=== PATIENT | male | born 1940 | race Caucasian/White ===

== ENCOUNTER 2017-08-26 09:52 | Outpatient (CLI) | payer MEDICARE ==
--- NOTE | 2017-08-26 13:59 | CT ---
CT ANGIOGRAM ABDOMEN AND PELVIS WITH IV CONTRAST AND 3D RECONSTRUCTIONS CT ANGIOGRAM BILATERAL LOWER EXTREMITIES WITH RUNOFF TO THE FEET WITH IV COTNRAST AND 3D RECONSTRUCTI ONS: CT ANGIOGRAM ABDOMEN AND PELVIS: There is a small hiatal hernia. The lung bases are clear. The liver, spleen, pancreas, bilateral adrenal glands, kidneys, and urinary bladder demonstrate a nor mal CT appearance. Dense vascular calcifications are seen in the visualized coronary arteries. There are also dense vas cular calcifications involving the abdominal aorta and iliac arteries. The celiac artery is patent. There is a moderate to severe narrowing involving the origin and proximal superior mesenteric artery with degree of narrowing measuring at least 50% or slightly greater. Origin of the HAYDEN is obscured by dense vascular calcifications. A single patent left renal artery is present. There is mild narro wing involving the proximal single right renal artery due to vascular calcifications. There are prominent vascular calcifications in the iliac arteries bilaterally with only mild degrees of narrowing present. There is a dense calcification involving the proximal left internal iliac loraine ry which obscures the lumen in this region. The proximal left external iliac artery demonstrates mil d narrowing due to vascular calcifications, but the external iliac arteries are otherwise patent bila terally. A fat-containing left inguinal hernia is present with postsurgical changes in each inguinal region. S mall left hydrocele is present. CTA BILATERAL LOWER EXTREMITIES WITH RUNOFF TO THE FEET: Right Lower Extremity: Vascular calcifications are seen in the right common femoral artery, but the right common femoral art luli is patent. There are surgical clips seen in the right inguinal region and adjacent to the proxim al right superficial femoral artery. There is mild narrowing involving the origin of the right super ficial femoral artery. Right profunda femoral artery is patent. There is a dense vascular calcifica tion seen present in the mid right SFA as well as an additional dense vascular calcification seen in the distal right SFA near the adductor canal. There is moderate narrowing involving the mid right SF A, but the lumen of the distal right SFA is not well seen and significant stenosis in this region cou ld not be entirely excluded. There is suboptimal opacification of the popliteal and tibioperoneal ve ssels probably related to timing of the contrast bolus, and the distal lower extremity arterial vesse ls cannot be adequately evaluated on this exam but do demonstrate significant atherosclerotic vascula r calcifications. Left Lower Extremity: There is dense calcification present in the distal left common femoral artery which obscures the lume n in this region. Significant stenosis could not be excluded. The profunda femoral artery is patent . Scattered vascular calcifications are seen in the left superficial femoral artery which otherwise appear patent. There is a vascular stent present in the mid right SFA extending to near the level of the adductor canal. The stent overall appears patent, although there is suboptimal contrast present . As noted on the contralateral right side, there is again suboptimal opacification of the popliteal artery and tibioperoneal vessels limiting adequate evaluation of these arterial vessels. IMPRESSION: 1. Moderate to severe narrowing involving the origin and proximal superior mesenteric artery. 2. Focal dense calcification is seen involving the most proximal internal iliac artery as well as th e distal left common femoral artery which obscures the lumen in these regions, and a significant sten osis could not be entirely excluded. 3. Focally dense calcification is seen in the mid right superficial femoral artery as well as in the distal right superficial femoral artery again obscuring the lumen in these regions. However, a sign ificant stenosis, especially in the distal right superficial femoral artery is suggested. 4. Stent in the mid and distal left superficial femoral artery which appears grossly patent. 5. Suboptimal opacification of the bilateral popliteal arteries and tibioperoneal vessels likely rel ated to suboptimal timing of the contrast bolus. 6. Small hiatal hernia. POS: TOYA
== END 2017-08-26 09:53 | disposition home or self-care (01) ==
LOC: SCSCT 09:52
PROVIDERS: ATTEND Thoracic Surgery (Cardiothoracic Vascular Surgery)
DX: I70.203 Unspecified atherosclerosis of native arteries of extremities, bilateral legs (principal); K44.9 Diaphragmatic hernia without obstruction or gangrene
CPT/HCPCS: 75635

== ENCOUNTER 2017-09-02 08:30 | Inpatient (IN) | payer MEDICARE, BC ==
[2017-09-03] MEDS ORDERED: Heparin 5,000 UNITS/ML VIAL ONE (10:17)
[2017-09-03] MEDS ORDERED: Protamine Sulfate 50 MG/5 ML VIAL ONE ×2 (10:17→15:39)
[2017-09-03] MEDS ORDERED: CEFAZOLIN/Water 2 GM/20 ML SYRINGE ONE (10:42)
[2017-09-03] MEDS ORDERED: Fentanyl 100 MCG/2 ML VIAL ONE ×2 (11:34→16:32)
[2017-09-03] MEDS ORDERED: Phenylephrine HCL 10 MG/ML VIAL ONE (11:35)
[2017-09-03] MEDS ORDERED: Heparin 10,000 UNITS/ 10 ML VIAL ONE (14:32)
[2017-09-03] MEDS ORDERED: Lidocaine 1% PF 5 ML VIAL ONE (14:32)
[2017-09-03] MEDS ORDERED: Dexamethasone 20 MG/5 ML VIAL ONE (14:32)
[2017-09-03] MEDS ORDERED: ePHEDrine/0.9% NaCl/PF SYRINGE 50 mg/10 ml ONE (14:32)
[2017-09-03] MEDS ORDERED: Glycopyrrolate 0.2 MG/ML 5 ML SYRINGE ONE (14:32)
[2017-09-03] MEDS ORDERED: Propofol 200 MG/20 ML VIAL ONE (14:32)
[2017-09-03] MEDS ORDERED: PHENYLEPHRINE-NS 100 MCG/ML 10 ML SYRINGE ONE (14:32)
[2017-09-03] MEDS ORDERED: Ondansetron HCl/PF 4 MG/2 ML Vial ONE (14:32)
[2017-09-03] MEDS ORDERED: Heparin 10,000 UNITS/1 ML VIAL ONE (15:06)
[2017-09-03] MEDS ORDERED: Meperidine HCl/PF 25 MG/ML VIAL SLOW IVP PRN (16:23)
[2017-09-03] MEDS ORDERED: Promethazine HCl 25 MG/ML VIAL SLOW IVP PRN (16:23)
[2017-09-03] MEDS ORDERED: Morphine Sulfate 2 MG/ML SYRINGE SLOW IVP PRN (16:23)
[2017-09-03] MEDS ORDERED: HYDROmorphone 2 MG/ML VIAL SLOW IVP PRN (16:23)
[2017-09-03] MEDS ORDERED: hydrALAZINE 20 MG/ML VIAL SLOW IVP PRN (17:56)
[2017-09-03] MEDS ORDERED: Promethazine HCl 25 MG SUPP PR PRN (17:56)
[2017-09-03] MEDS ORDERED: Promethazine HCl 25 MG/ML VIAL IM PRN (17:56)
[2017-09-03] MEDS ORDERED: Acetaminophen 325 MG TAB PO PRN (17:56)
[2017-09-03] MEDS ORDERED: HYDROcodone/Acetaminophen 5/325 mg Tablet PO PRN ×2 (17:56)
[2017-09-03] MEDS ORDERED: Ondansetron HCl/PF 4 MG/2 ML Vial IVP PRN (17:56)
--- NOTE | 2017-09-03 18:23 | OP ---
DATE OF PROCEDURE: 09/03/2017 PREOPERATIVE DIAGNOSES: Bilateral lower extremity lifestyle-limiting claudication with recurrent lef t external iliac/common femoral artery stenosis after endarterectomy and right superficial femoral ar tanisha severe stenosis. PREOPERATIVE DIAGNOSES: Bilateral lower extremity lifestyle-limiting claudication with recurrent lef t external iliac/common femoral artery stenosis after endarterectomy and right superficial femoral ar tanisha severe stenosis. PROCEDURES: 1. Redo left common femoral artery/external iliac/superficial femoral artery/profunda exposure. 2. Left external iliac artery angiogram. 3. Abdominal aortogram. 4. Right external iliac angiogram. 5. Right common femoral artery angiogram. 6. Right superficial femoral artery angiogram. 7. Right popliteal artery angiogram. 8. Right anterior tibial artery angiogram. 9. Right distal superficial femoral artery/popliteal artery primary stenting with post-DRAG CAR RACER -- 6 x 10 0 Innova nitinol stent posted with a 6 x 100 Letha balloon. 10. Right mid superficial femoral artery stent/DRAG CAR RACER with a 6 x 150 Innova stent posted with a 6 x 100 Letha balloon. 11. Left external iliac/common femoral artery/superficial femoral artery redo endarterectomy with mcarina vine pericardium patch angioplasty. TOTAL CONTRAST: 62.5. TOTAL FLUORO TIME: 19.24. ESTIMATED BLOOD LOSS: 500 mL. ANESTHESIA: General endotracheal. DESCRIPTION OF PROCEDURE: After consent was obtained, the patient was brought to the operating room and placed in the supine position on the operating room table. Appropriate anesthetic monitor was pl aced and general endotracheal anesthesia induced. Abdomen and groins were prepped and draped in usua l sterile fashion. Left groin was reopened through its previous incision. The common femoral, profu nda femoris, superficial femoral and external iliac arteries were carefully dissected free from surro unding tissues. An area above the area of calcification was selected and punctured with an angiograp hy needle. A Glidewire was then passed into the upper abdominal aorta. Contra catheter was passed t o the aorta and hand-injected aortogram performed. The aorta, common iliac and proximal external ralph ac arteries bilaterally were without significant stenosis. Hand-injected arteriogram was then perfor med through the sheath in the left groin, eliminating the left groin showing the area of severe steno sis that was recurrent in the endarterectomy site. The Contra catheter was then guided over the aort ic bifurcation and into the external iliac artery. Hand-injected arteriogram was performed eliminati ng the distal external iliac and common femoral arteries, which were free of any significant stenosis . The catheter was then placed in the common femoral artery and again hand-injected arteriogram was performed in serial fashion eliminating the SFA, profunda, popliteal and tibial vessels. There were 2 areas of severe stenosis in the mid SFA and an area of occlusion in the popliteal artery. The rohan ent was given 5000 units of heparin. The Magic Torque guidewire was then placed through the Contra c atheter and Contra catheter sheath removed. A destination sheath was then placed over the aortic bif urcation into the superficial femoral artery. An angled glide catheter and Glidewire were used to tr averse the first two areas of stenosis. The Glidewire and a [place] catheter were then used to trave rse the area of occlusion in the popliteal artery. Hand-injected arteriogram was performed with the catheter in the anterior tibial artery showing intraluminal location. The Magic Torque guidewire was again replaced. A 6 x 100 stent was selected for the distal area of occlusion and multiple areas of stenosis. This was deployed and posted with a 6 x 100 balloon. Hand-injected arteriogram with the tip of the sheath in the SFA showed an excellent result. The multiple areas of stenosis in the mid l eft SFA were treated with a 6 x 150 Innova stent, posted with a 6 x 100 Letha balloon. Hand-inject ed arteriogram again showed an excellent result. Sheath was withdrawn over the aortic bifurcation ba ck into the left external iliac artery. Guidewires were removed. Left groin was then addressed. Th e common femoral artery was clamped and the sheath removed. SFA and profunda branches were clamped. The previous endarterectomy patch was opened vertically. This was extended above the previous patch into the external iliac artery. This was where the external iliac became normal with excellent infl ow. ACT remained over 220 throughout the procedure. The incision was extended down onto the superfi cial femoral artery. A redo endarterectomy was performed with mosquito hemostats clearing all the ca lcium. Bovine pericardial patch was then sewn in place with running 5-0 Prolene suture. At the comp letion, the clamps were released and antegrade flow reestablished. There was an excellent Doppler si gnal distal to the patch. Protamine was administered. Hemostasis was ensured. Wounds were copiousl y irrigated, closed in multiple layers, and Dermabond applied to the skin. The patient tolerated the procedure well, was awakened, extubated, and transferred to the recovery room in stable condition.
[2017-09-03 18:26] VITALS: BMI 30.9
[2017-09-03] MEDS: CEFAZOLIN/Water 2 GM/20 ML SYRINGE SLOW IVP SCH (21:16)
[2017-09-03] MEDS: diphenhydrAMINE 50 MG CAP PO SCH (21:17)
[2017-09-03] MEDS ORDERED: FLU VACC TS2017-18 (>65YR) 0.5 ML SYRINGE IM ONE (22:00)
[2017-09-04] MEDS: HYDROcodone/Acetaminophen 5/325 mg Tablet PO PRN ×2 (05:08→11:59)
[2017-09-04] MEDS: CEFAZOLIN/Water 2 GM/20 ML SYRINGE SLOW IVP SCH ×2 (05:11→13:55)
[2017-09-04 05:15] LABS: #Lymphocytes 1.6 thou/uL (1.20-3.40); #Monocytes 0.5 thou/uL (0.11-0.59); #Neutrophils 8.1 thou/uL (1.40-6.50); %Basophils 0.1 % (0.0-1.0); %Eosinophils 0.1 % (0.0-10.0); %Lymphocytes 15.8 % (21.0-51.0); %Monocytes 4.6 % (0.0-10.0); %Neutrophils 79.5 % (42.0-75.0); Hemoglobin 11.8 g/dL (14.0-18.0); Mean Corpuscular HGB CONC 33.4 g/dL (32.0-36.0); Mean Corpuscular Hemoglobin 31.2 pg (27.0-31.0); Mean Corpuscular Volume 93.2 fl (80.0-94.0); Mean Platelet Volume 7.6 fL (7.4-10.4); Platelet Count 194 thou/uL (130-400); RBC Distribution Width 12.2 % (11.5-14.5); Red Blood Cell (RBC) Count 3.78 mill/uL (4.70-6.10); White Blood Cell (WBC) Count 10.2 thou/uL (4.8-10.8)
[2017-09-04 05:36] LABS: Anion Gap 9 mmol/L (10-20); BUN (Urea Nitrogen) 13 mg/dL (8.4-25.7); Calc. Creatinine Clearance 119 mL/min (70-130); Calcium 8.7 mg/dL (7.8-10.44); Carbon Dioxide 25 mmol/L (23-31); Chloride 107 mmol/L (98-107); Estimated GFR-MDRD Greater than 90; Glucose 117 mg/dL (83-110); Potassium 3.8 mmol/L (3.5-5.1); Sodium 137 mmol/L (136-145)
[2017-09-04] MEDS: Clopidogrel Bisulfate 75 MG TAB PO SCH (11:41)
[2017-09-04] MEDS: Multivit, Therapeutic 1 TAB PO SCH (11:41)
[2017-09-04] MEDS: Atorvastatin Calcium 20 MG TAB PO SCH (11:41)
[2017-09-04] MEDS: diphenhydrAMINE 50 MG CAP PO SCH (21:34)
[2017-09-05 05:19] LABS: #Eosinphils 0.4 thou/uL (0.0-0.7); #Lymphocytes 3.7 thou/uL (1.20-3.40); #Monocytes 0.9 thou/uL (0.11-0.59); #Neutrophils 9.1 thou/uL (1.40-6.50); %Basophils 0.3 % (0.0-1.0); %Lymphocytes 26.4 % (21.0-51.0); %Monocytes 6.1 % (0.0-10.0); %Neutrophils 64.2 % (42.0-75.0); Hemoglobin 12.2 g/dL (14.0-18.0); Mean Corpuscular HGB CONC 33.2 g/dL (32.0-36.0); Mean Corpuscular Volume 93.4 fl (80.0-94.0); Mean Platelet Volume 8.2 fL (7.4-10.4); Platelet Count 284 thou/uL (130-400); RBC Distribution Width 12.3 % (11.5-14.5); Red Blood Cell (RBC) Count 3.95 mill/uL (4.70-6.10); White Blood Cell (WBC) Count 14.1 thou/uL (4.8-10.8)
[2017-09-05 05:48] LABS: Anion Gap 13 mmol/L (10-20); BUN (Urea Nitrogen) 16 mg/dL (8.4-25.7); Calc. Creatinine Clearance 110 mL/min (70-130); Calcium 9.7 mg/dL (7.8-10.44); Carbon Dioxide 24 mmol/L (23-31); Chloride 105 mmol/L (98-107); Estimated GFR-MDRD Greater than 90; Glucose 121 mg/dL (83-110); Potassium 3.8 mmol/L (3.5-5.1); Sodium 138 mmol/L (136-145)
--- NOTE | 2017-09-05 07:17 | DIS ---
DISCHARGE DIAGNOSES: Peripheral vascular disease. PROCEDURES: 1. Redo left iliofemoral endarterectomy. 2. Angiograms and stenting of the right superficial femoral and popliteal arteries. DESCRIPTION OF HOSPITAL STAY: Mr. Castaneda was brought in with severe bilateral lifestyle limiting c laudication. He underwent the above procedure. He has done well postoperatively and being discharge d home today. Home medications are unchanged.
[2017-09-05] MEDS: Clopidogrel Bisulfate 75 MG TAB PO SCH (09:59)
[2017-09-05] MEDS: Multivit, Therapeutic 1 TAB PO SCH (09:59)
[2017-09-05] MEDS: Atorvastatin Calcium 20 MG TAB PO SCH (09:59)
[2017-09-05 12:46] VITALS: BP 116/70; TEMP 97.5
== END 2017-09-05 11:39 | disposition home or self-care (01) | DRG 272 ==
LOC: SURG A 09-03 09:32 → 2NO 09-03 17:03
PROVIDERS: ADMIT Thoracic Surgery (Cardiothoracic Vascular Surgery); ATTEND Thoracic Surgery (Cardiothoracic Vascular Surgery)
PROC: 04CJ3ZZ Extirpation of Matter from Left External Iliac Artery, Percutaneous Approach (ICD-10-PCS; principal; 2017-09-03)
PROC: 04CL3ZZ Extirpation of Matter from Left Femoral Artery, Percutaneous Approach (ICD-10-PCS; 2017-09-03)
PROC: 047K34Z Dilation of Right Femoral Artery with Drug-eluting Intraluminal Device, Percutaneous Approach (ICD-10-PCS; 2017-09-03)
PROC: 04U Lower Arteries, Supplement (ICD-10-PCS; 2017-09-03)
PROC: 04U Lower Arteries, Supplement (ICD-10-PCS; 2017-09-03)
PROC: 047M34Z Dilation of Right Popliteal Artery with Drug-eluting Intraluminal Device, Percutaneous Approach (ICD-10-PCS; 2017-09-03)
PROC: B41G1ZZ Fluoroscopy of Left Lower Extremity Arteries using Low Osmolar Contrast (ICD-10-PCS; 2017-09-03)
PROC: B41F1ZZ Fluoroscopy of Right Lower Extremity Arteries using Low Osmolar Contrast (ICD-10-PCS; 2017-09-03)
DX: I70.213 Atherosclerosis of native arteries of extremities with intermittent claudication, bilateral legs (principal); E78.5 Hyperlipidemia, unspecified
CPT/HCPCS: 36415; 36416; 76001; 80048; 85025; 85027; 85610; 85730; 86850; 86900; 86901; 93005; 93010; A4216; C1725; C1769; C1876; C1887; G8978-GP-CJ; G8979-GP-CJ; G8980-GP-CJ; J1100; J1644; J2001; J2370; J2405; J2704; J2720; J3010; J7620

== ENCOUNTER 2017-09-02 08:31 | Outpatient (CLI) | payer MEDICARE, BC ==
[2017-09-02 09:36] LABS: Hemoglobin 14.6 g/dL (14.0-18.0); Mean Corpuscular HGB CONC 33.2 g/dL (32.0-36.0); Mean Corpuscular Volume 93.2 fl (80.0-94.0); Mean Platelet Volume 7.7 fL (7.4-10.4); Platelet Count 212 thou/uL (130-400); RBC Distribution Width 12.1 % (11.5-14.5); White Blood Cell (WBC) Count 6.2 thou/uL (4.8-10.8)
[2017-09-02 09:48] LABS: Prothrombin Time 13.8 SEC (12.0-14.7)
[2017-09-02 09:49] LABS: PTT 31.3 SEC (22.9-36.1)
[2017-09-02 09:58] LABS: Anion Gap 10 mmol/L (10-20); BUN (Urea Nitrogen) 16 mg/dL (8.4-25.7); Calc. Creatinine Clearance 0 mL/min (70-130); Calcium 9.9 mg/dL (7.8-10.44); Carbon Dioxide 29 mmol/L (23-31); Chloride 105 mmol/L (98-107); Estimated GFR-MDRD 77; Glucose 97 mg/dL (83-110); Potassium 4.3 mmol/L (3.5-5.1); Sodium 140 mmol/L (136-145)
--- NOTE | 2017-11-09 13:35 | EKG ---
Test Reason : Blood Pressure : / mmHG Vent. Rate : 071 BPM Atrial Rate : 071 BPM P-R Int : 166 ms QRS Dur : 096 ms QT Int : 392 ms P-R-T Axes : 045 -27 044 degrees QTc Int : 425 ms Normal sinus rhythm Low voltage QRS Borderline ECG Confirmed by CUONG MCKNIGHT MD ([id number]) on 11/09/2017 1:35:05 PM Referred By: MONICA Confirmed By:CUONG MCKNIGHT MD
== END 2017-09-02 08:32 | disposition home or self-care (01) ==
LOC: LABBT 08:31
PROVIDERS: ATTEND Thoracic Surgery (Cardiothoracic Vascular Surgery)
DX: Z01.818 Encounter for other preprocedural examination (principal); I73.9 Peripheral vascular disease, unspecified
CPT/HCPCS: 80048; 85027; 85610; 85730; 86850; 86900; 86901; 93005; 93010

== ENCOUNTER → 2017-11-15 | Day surgery (SDC) | payer MEDICARE, BC ==
[2017-11-14 11:00] VITALS: BMI 32.1
[~2017-11-15] MED LIST: Bupivacaine HCl 0.5%/Epinephrine 1:200,000/PF 30 ml Vial ONE; CEFAZOLIN/Water 2 GM/20 ML SYRINGE ONE; Famotidine/PF 20 mg/2ml Vial ONE; Fentanyl 100 MCG/2 ML VIAL ONE; Lidocaine 1% PF 5 ML VIAL ONE; Ondansetron PF 4 MG/2 ML Vial ONE; PHENYLEPHRINE-NS 100 MCG/ML 10 ML SYRINGE ONE; PROPOFOL 200 MG/20 ML VIAL ONE; ePHEDrine/0.9% NaCl/PF SYRINGE 50 mg/10 ml ONE
[2017-11-15 08:07] LABS: #Basophils 0.1 thou/uL (0.0-0.2); #Eosinphils 0.3 thou/uL (0.0-0.7); #Lymphocytes 1.8 thou/uL (1.20-3.40); #Monocytes 0.4 thou/uL (0.11-0.59); #Neutrophils 2.7 thou/uL (1.40-6.50); %Basophils 1.5 % (0.0-1.0); %Eosinophils 5.1 % (0.0-10.0); %Lymphocytes 34.4 % (21.0-51.0); %Monocytes 6.7 % (0.0-10.0); %Neutrophils 52.3 % (42.0-75.0); Hemoglobin 12.4 g/dL (14.0-18.0); Mean Corpuscular HGB CONC 33.1 g/dL (32.0-36.0); Mean Corpuscular Volume 87.6 fl (80.0-94.0); Mean Platelet Volume 7.7 fL (7.4-10.4); Platelet Count 231 thou/uL (130-400); RBC Distribution Width 12.1 % (11.5-14.5); Red Blood Cell (RBC) Count 4.28 mill/uL (4.70-6.10); White Blood Cell (WBC) Count 5.2 thou/uL (4.8-10.8)
[2017-11-15 08:23] LABS: Anion Gap 11 mmol/L (10-20); BUN (Urea Nitrogen) 19 mg/dL (8.4-25.7); Calc. Creatinine Clearance 96 mL/min (70-130); Calcium 9.6 mg/dL (7.8-10.44); Carbon Dioxide 25 mmol/L (23-31); Chloride 106 mmol/L (98-107); Estimated GFR-MDRD 75; Glucose 99 mg/dL (83-110); Potassium 3.7 mmol/L (3.5-5.1); Sodium 138 mmol/L (136-145)
--- NOTE | 2017-11-18 14:22 | OP ---
DATE OF PROCEDURE: 11/15/2017 PREOPERATIVE DIAGNOSIS: Lymphocele in the left groin. POSTOPERATIVE DIAGNOSIS: Redo left common femoral endarterectomy. PROCEDURE: Open drainage of the lymphocele. DRAINS: 10 Mont[place]erratian Gaurav. PROCEDURE IN DETAIL: After consent was obtained, patient was brought to the operating room and place d in the supine on operating room table. Appropriate anesthetic monitor was placed and general endot kenji anesthesia induced. The previous incision was opened. The lymphocele was entered and fluid evacuated. The lymphocele pocket was then completely removed with electrocautery on the anterior and lateral surfaces. The posterior surface was contiguous with the pericardial patch that was left in place. There are no areas of obvious lymphatic leak. Wound was copiously irrigated. The 10-Montserratian drain was placed and brought to the skin and secured to skin with silk suture. Wounds were then clos ed in multiple layers over the drain. Skin was closed with multiple interrupted nylon sutures. The patient tolerated the procedure well, was awakened, extubated, and transferred to recovery room in st able condition.
== END ==
LOC: SDC 06:30
PROVIDERS: ATTEND Thoracic Surgery (Cardiothoracic Vascular Surgery)
PROC: 079 Lymphatic and Hemic Systems, Drainage (ICD-10-PCS; principal; 2017-11-15)
DX: I89.8 Other specified noninfective disorders of lymphatic vessels and lymph nodes (principal); I73.9 Peripheral vascular disease, unspecified; E78.2 Mixed hyperlipidemia
CPT/HCPCS: 36415; 80048; 85025; J0670; J2001; J2405; J2704; J3010; S0028

== ENCOUNTER 2019-08-21 09:42 | Outpatient (CLI) | payer MEDICARE, BC ==
[2019-08-21] MEDS ORDERED: Iopamidol-370 76% 500 ML 1 ML ONE (14:27)
--- NOTE | 2019-08-21 14:40 | CT ---
CT ANGIO OF ABDOMEN AND PELVIS AND LOWER EXTREMITIES PERFORMED WITH INTRAVENOUS CONTRAST ENHANCEMENT AND 3D RECONSTRUCTIONS: Date: 08/21/2019 HISTORY: Atherosclerosis of arteries. Years of pain in calves after walking a short distance. Placement of lenore nts in femoral arteries. COMPARISON: 08/26/2017 examination. FINDINGS: The lung bases show chronic change. There is a moderate hiatal hernia present. The liver, spleen, pancreas, and gallbladder regions appea r unremarkable. Right and left adrenal glands, and right and left kidneys are normal in size. No significant abdomina l or pelvic lymphadenopathy. The angiographic portion of this study shows normal appearing celiac artery. There is calcified plaqu e and at least a mild degree of stenosis at the origin of the superior mesenteric artery. There is a patent HAYDEN present. There is atherosclerotic change at the origin of both renal arteries. Single allegra l arteries are seen bilaterally. There is suggestion of some moderate stenosis of the origin of the r ight renal artery. It is difficult to assess due to plaque. It is felt to be fairly similar to the pr evious exam. The infrarenal aorta shows atherosclerotic change, more prominent at bifurcation level. No aneurysm. The right lower extremity runoff shows some mild to moderate narrowing of the right common iliac loraine ry. No significant stenosis of either the internal or external iliac arteries. Common femoral artery shows no significant stenosis. There is some atherosclerotic plaque present. There are surgical clips at the origin of the right superficial femoral artery with mild narrowing. The profunda femoral loraine ry is patent. There is moderate atherosclerotic plaque along the course of the superficial femoral ar tanisha and there is a stent present which begins at the mid superficial femoral artery level and extend s to the adductor canal. The stent appears patent. The popliteal is patent with a second stent at the popliteal artery level. There is atherosclerotic change at the level of the trifurcation, but there does appear to be 3 vessel runoff to the leg. On the left side, there is atherosclerotic change of the left common and external iliac arteries with out significant stenosis. There is also calcified plaque of the internal iliac. Surgical clips are ag ain seen at the level of the origin of the superficial femoral artery. The profunda femoral and super ficial femoral arteries are patent. There is moderate plaque formation along the course of the superf icial femoral artery and there is a patent stent near the level of the adductor canal. There is some mild to moderate narrowing of the popliteal artery with some fairly dense plaque formation. There is a patent trifurcation and 3 vessel runoff. IMPRESSION: 1. Hiatal hernia. 2. Mild to moderate narrowing of the origin of the right renal artery and mild stenosis of the origi n of the superior mesenteric artery. 3. Atherosclerotic change along the course of the right superficial femoral artery. The distal super ficial artery stent and a popliteal artery stent are patent and there is 3 vessel runoff on the right . 4. Postoperative changes at the origin of the left superficial femoral artery are noted with the dis danielle superficial artery stent which is patent and there is 3 vessel runoff to the left leg. POS: BELTRAN
== END 2019-08-21 09:43 | disposition home or self-care (01) ==
LOC: BICCT 09:42
PROVIDERS: ATTEND Thoracic Surgery (Cardiothoracic Vascular Surgery)
DX: I70.203 Unspecified atherosclerosis of native arteries of extremities, bilateral legs (principal); K44.9 Diaphragmatic hernia without obstruction or gangrene; I70.1 Atherosclerosis of renal artery; I77.1 Stricture of artery; Z98.890 Other specified postprocedural states
CPT/HCPCS: 75635; 82565; Q9967

== ENCOUNTER 2020-09-23 09:33 | Outpatient (CLI) | payer MEDICARE, BC | END 2020-09-23 09:34 | disposition home or self-care (01) | LOC: NM 09:33 | PROVIDERS: ATTEND Psychiatry & Neurology Neurology | DX: G62.89 Other specified polyneuropathies (principal); R94.02 Abnormal brain scan | CPT/HCPCS: 78803; A9584 ==